=== PATIENT | male | born 1995 | race African-American/Black ===

== ENCOUNTER 2023-05-02 06:12 | Emergency (ER) | payer MEDICAID ==
[~2023-05-02] VITALS: Ht 188 cm; Wt 56.0 kg
[2023-05-02 06:36] VITALS: BP 102/65; PULSE 74; RESP 17; O2SAT 97
[2023-05-02] MEDS ORDERED: HYDR-3973 PO (09:17)
[2023-05-02] MEDS ORDERED: AMOX-580 PO (09:17)
[2023-05-02 09:25] VITALS: TEMP 99
--- NOTE | 2023-05-02 09:27 | NUR ---
provider assessment prior to nursing assesment. MSE in rm 17
== END 2023-05-02 09:27 | disposition home or self-care (01) ==
LOC: ER 06:13
DX: K04.7 Periapical abscess without sinus (principal)
CPT/HCPCS: 99283